=== PATIENT | male | born 2005 | race Caucasian/White ===

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

== ENCOUNTER 2025-06-13 15:17 | Emergency (ER) | payer BC, SELFPAY ==
--- NOTE | ~2025-06-13 | XR_ITS ---
EXAM: XR lumbar spine 2-3V DATE: 06/13/2025 16:00 HISTORY: Intermittent low back pain, NKI . COMPARISON: None available. FINDINGS: 5 nonrib-bearing lumbar-type vertebral bodies. Pedicles intact. Normal vertebral body alig nment. Vertebral body heights preserved. Disc mild disc space narrowing at L2-3, L4-5, and L5-S1. Nor mal facets and posterior elements. No fracture or dislocation. IMPRESSION: No acute fracture or traumatic malalignment detected in the lumbar spine. Mild multilevel degenerative disc disease. Reviewed, dictated and finalized at location K.
--- NOTE | ~2025-06-13 | XR_ITS ---
EXAMINATION: XR chest 1V portable Exam Date/Time: 06/13/2025 15:45 CDT HISTORY: Weakness, intermittent headache Comparison: 04/03/2022. RESULT: Lines, tubes, and devices: None. Lungs and pleura: Clear. Cardiomediastinal silhouette: Stable. Other: No acute osseous or upper abdominal finding. IMPRESSION: No acute cardiopulmonary process. Reviewed, dictated and finalized at location K.
--- NOTE | ~2025-06-13 | CT_ITS ---
EXAMINATION: CT brain wo con DATE: 06/13/2025 15:59 INDICATION: Intermittent posterior headache, NKI . TECHNIQUE: Computed tomography (CT) of the head was performed without intravenous contrast. The mA wa s adjusted according to patient size. Iterative reconstruction technique was employed. The dose-lengt h product was 681.00 mGy-cm. COMPARISON: 04/03/2022. FINDINGS: No acute intracranial hemorrhage or extra-axial fluid collection. No hydrocephalus, mass, or herniation. No acute ischemic infarct. Unremarkable dural venous sinus attenuation. No acute osseous abnormality. The aerated spaces are clear. IMPRESSION: No acute intracranial process. Reviewed, dictated and finalized at location K.
--- OUTSIDE RECORDS SUMMARY | 2025-06-13 15:19 | XMS_ITS | Encounter Summary ---
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 Gender Identity Not on file Sexual Orientation Not on file documented as of this encounter Plan of Treatment Not on file documented as of this encounter Visit Diagnoses Not on filedocumented in this encounter Additional Health Concerns Infection Onset Date Last Indicated Resolved Time COVID-19 Rule Out 09/07/2020 09/07/2020 09/08/2020 9:21 PM CDT COVID-19 Rule Out 12/21/2020 12/21/2020 12/21/2020 4:34 PM 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 COVID-19 Rule Out 12/21/2020 12/21/2020 12/23/2020 9:30 AM 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 COVID-19 Rule Out 01/25/2021 01/25/2021 01/25/2021 6:05 PM 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 COVID-19 Rule Out 01/25/2021 01/25/2021 01/27/2021 7:18 AM 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
--- OUTSIDE RECORDS SUMMARY | 2025-06-13 15:19 | XMS_ITS | Continuity of Care Document ---
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 . [facility], [address] [place] [address], [id number], tel:[phone] Hexaformer Table8 DIANNA No Information Provider Outside. . Family History Family Member Type Diagnosis Age At Onset No Information Immunizations Vaccine Date Status Comments Varicella administered Note: VARICELLA VACCINE, (VARIVAX) SC By JUANITO ; Source: New Immunization Record Hep A administered Note: HEPA VACC INE PED/ADOL-2 DOSE By JUANITO ; Source: New Immunization Record DTaP administered Note: DTAP VACC INE By JUANITO ; Source: New Immunization Record Polio administered Note: POLIOVIRU S # 1 By JUANITO ; Source: New Immunization Record MMR administered Note: MMR VACCI NE, SC By JUANITO ; Source: New Immunization Record Varicella administered Note: VARICELLA VACCINE, (VARIVAX) SC By JUANITO ; Source: New Immunization Record DTaP administered Note: DTAP VACC INE By JUANITO ; Source: New Immunization Record HIB administered Note: HIB VACCI NE By JUANITO ; Source: New Immunization Record Pneumococcal administered Note: PCV7 (PRE VNAR) VACC, PED <5 By JUANITO ; Source: New Immunization Record MMR administered Note: MMR VACCI NE, SC By JUANITO ; Source: New Immunization Record DTaP administered Note: DTAP VACC INE By JUANITO ; Source: New Immunization Record Polio administered Note: POLIOVIRU S # 1 By JUANITO ; Source: New Immunization Record Hep B administered Note: HEPB VACC INE By JUANITO ; Source: New Immunization Record Pneumococcal administered Note: PCV7 (PRE VNAR) VACC, PED <5 By JUANITO ; Source: New Immunization Record DTaP administered Note: DTAP VACC INE By JUANITO ; Source: New Immunization Record Polio administered Note: POLIOVIRU S # 1 By JUANITO ; Source: New Immunization Record HIB administered Note: HIB VACCI NE By JUANITO ; Source: New Immunization Record Pneumococcal administered Note: PCV7 (PRE VNAR) VACC, PED <5 By JUANITO ; Source: New Immunization Record DTaP administered Note: DTAP VACC INE By JUANITO ; Source: New Immunization Record Polio administered Note: POLIOVIRU S # 1 By JUANITO ; Source: New Immunization Record HIB administered Note: HIB VACCI NE By JUANITO ; Source: New Immunization Record Hep B administered Note: HEPB VACC INE By JUANITO ; Source: New Immunization Record Pneumococcal administered Note: PCV7 (PRE VNAR) VACC, PED <5 By JUANITO ; Source: New Immunization Record Hep B administered Note: HEPB VACC INE By JUANITO ; Source: New Immunization Record Payers Payer name Insurance type Covered alliance party ID Leyla luirose(s) No Information Social History Type Description Quantity Date Captured Comments Sex Male Smoking Status No Information Chief Complaint And Reason For Visit No Information Reason For Referral Reason For Referral No Information History Of Present Illness Encounter Date Complaint History Of Prese nt Illness No Information Functional Status Date Functional Assessmen t No Information Instructions Date Instruction Additional Infor mation No Information Assessments Type Assessment Date No Information Patient Care Teams Name Effective Dates (start - stop) Status Members No Information
--- OUTSIDE RECORDS SUMMARY | 2025-06-13 15:19 | XMS_ITS | Clinical Summary ---
Author Organization [facility] Address [address] [place] [address] Care Team Providers Care Coat Joiner Lockstitch Name Role Phone Simón Stubbs MD Primary Care Provider [phone] Source Comments [facility] [email or web address],non-owned Affiliates and Associated Physician Practices is amultiple site organization consisting of ambulatory clinics and hospital sitesin [place], [place], [place] and [place]. This disclosure is being madepursuant to the Care Everywhere program and may not contain all information available regarding this patient. Last updated 18.[facility] [email or web address] Allergies No known active allergies Medications * Be aware that medications may not be up to date on this document. Alwaysverify current medications with the patient. methylphenidate (RITALIN) 10 MG tablet Take 10 mg by mouth 3 times daily. 10 mg in am, 5 mg( 1/2 tab) at 11:00 and 5 mg at 3:30 Active cloNIDine (CATAPRES) 0.1 MG tablet Take 0.1 mg by mouth 2 times daily Active FLUoxetine (PROZAC) 20 MG/5ML oral solution Take 20 mg by mouth once daily Active ondansetron, disintegrating, (ZOFRAN ODT) 4 MG tablet Take 1 Tab by mouth every 8 hours as needed for Nausea/Vomiti ng Allow tablet to dissolve on the tongue 24 Tab 1 03/01/2016 Active esomeprazole (NEXIUM) 20 MG packet Take 1 Packet by mouth once daily 30 Packet 2 04/05/2016 Active Active Problems Problem Noted Date Diagnosed Date Hematuria 03/30/2016 Assessment & Plan (04/04/2016 3:24 PM CDT): Assessment: Continues to have hematuria of unknown reason. Father with hx of kidney stones but Itz denies any flank pain. Plan: - Called nephrology, no need for inpatient consultation. He may have IgA nephropathy but can be worked up as an outpatient. He saw nephrology 1 year ago and was told to follow up in a year if the hematuria was still present. Assessment & Plan (04/03/2016 1:56 AM CDT): Assessment: Continues to have hematuria of unknown reason. Father with hx of kidney stones but Itz denies any flank pain. Plan: Will monitor. Might need further work up in the future on outpatient base, if does not resolve. Assessment & Plan (03/30/2016 2:34 PM CDT): Assessment: Reports of gross hematuria and findings of microscopic hematuria w/o proteinuria. No reported dysuria. No pyuria. No HTN Plan: - Urine calcium/creatinine ratio - Urine culture pending - May need further evaluation as outpatient Assessment & Plan (03/30/2016 12:51 PM CDT): Assessment: Reports of gross hematuria and finding of microscopic hematuria w/o proteinuria. No reported dysuria. No pyuria. No HTN Plan: 1. Obtain Urine calcium/creatinine ratio 2. Rescreen for signs/symptoms of UTI. If so, obtaine urine culture. 3. Physical exam to urtheral meatus 4. May need further evaluation outpatient Behavior disorder 02/29/2016 Assessment & Plan (02/29/2016 5:56 PM CDT): Assessment: 10 yo admitted for abdominal pain and vomiting with history of ADHD and behavioral problems. Outburst upon arrival requiring restraints, safety leader, ativan, and IM zyprexa. Plan: - continue home medications - fluoxetine 20 mg daily - clonidine 0.1 mg bid - ritalin 15 mg qam and 5 mg qpm - ativan 2 mg q4h prn for agitation/behavior disturbance - enclosure bed with mitten restraints when father not present - social work consult Epigastric abdominal pain and vomiting 6 Assessment & Plan (04/04/2016 3:27 PM CDT): Assessment: 1 month hx of nbnb persistent vomiting with sharp shooting mid epigastric region pain which last few seconds. Pt was dx with H-pylori Gastritis and was started on Clarithromycin and amoxicillin. Pt has failed outpatient treatment and continues to have similar symptoms. Pt also hx behavior problems and that might be also a reason for abdominal pain and vomiting. Pt has not received ADHD and gastritis medicines due to constant emesis. WIll admit him for further evaluation & treatment of pain and dehydration. Plan: MIVF--can decrease if taking good PO IV nexium. Tylenol for pain - feel that a large component of these symptoms is anxiety and underlying psychologic issues. Psychology recommended outpatient therapy during the February hospitalization. Psychiatry was curbsided today and recommended outpatient therapy as well. Dad does not seem amenable to this - SW consulted as pt has expressed at times that he does not want to go home with dad (not currently saying that). There have been social concerns during past admissions as well. Assessment & Plan (04/03/2016 1:58 AM CDT): Assessment: 1 month hx of nbnb persistent vomiting with sharp shooting mid epigastric region pain which last few seconds. Pt was dx with H-pylori Gastritis and was started on Clarithromycin and amoxicillin. Pt has failed outpatient treatment and continues to have similar symptoms. Pt also hx behavior problems and that might be also a reason for abdominal pain and vomiting. Pt has not received ADHD and gastritis medicines due to constant emesis. WIll admit him for further evaluation & treatment of pain and dehydration. Plan: Admit to general medicine floor under Dr. Antunez's Care. NPO overnight. MIVF IV nexium. IV Toradol for pain. Avoid NSAIDs. Hold antibiotics for now. Maalox to prevent emesis. Assessment & Plan (03/30/2016 10:55 PM CDT): Assessment: Itz is a 10 yo with H. Pylori and gastritis diagnosed 1 month ago--untreated due to inability to contact family--who presents with abdominal pain and NBNB vomiting. He was dehydrated secondary to multiple episodes of emesis and so was admitted for IV hydration. Plan: - mIVF: D5 1/2 + 20 KCl at 70 ml/h, discontinue once tolerating adequate po fluids - Amoxicillin 250 mg TID - Clarithromycin 250 mg BID - IV Nexium 20 mg QD - Monitor I/O - Vitals Q8 - Regular diet as tolerated - Discharge home once clinically improved Assessment & Plan (03/30/2016 12:45 PM CDT): Known h/o H. Pylori gastritis Recommend tx with triple therapy in light of endoscopic findings of H. Pylori gastritis in setting of symptoms (vomiting) Perhaps unrelated, but would reassess symptoms after therapy Assessment & Plan (03/30/2016 3:49 AM CDT): Assessment: Itz is a 10 yo with H. Pylori and gastritis diagnosed 1 month ago--untreated due to inability to contact family--who presents with abdominal pain and NBNB vomiting. He is dehydrated secondary to multiple episodes large emesis today so will admit for IV rehydration. Was supposed to have follow up appointment with GI today so will discuss plan going forward with GI team on rounds. Plan: - Admit to Gastroenterology; Dr. Vera - Regular Diet - mIVF: D5 1/2 + 20 KCl at 70 ml/h - Amoxicillin 250 mg TID - Clarithromycin 250 mg BID - IV Nexium 10 mg QD - Monitor I/O - Vitals Q8 Assessment & Plan (02/29/2016 5:53 PM CDT): Assessment: Itz is a 10 year old male with history of constipation and behavior problems who presents for epigastric pain, possible weight loss, and vomiting. Admitted for further evaluation of vomiting. Labs reassuring. Etiology likely gastritis given history. EGD done today and still having pain and nausea. Plan: - regular diet - Nexium 20 mg bid - zofran 4 mg q8h prn - Strict I/Os - Vitals q 8 hrs - benadryl 12.5 mg qhs Assessment & Plan (02/28/2016 11:34 PM CDT): Assessment: Plan: Resolved Problems Problem Noted Date Diagnosed Date Resolved Date Dehydration 03/30/2016 03/30/2016 Assessment & Plan (03/30/2016 12:53 PM CDT): Assessment: admitted with po intolerance and electorlyte abnormalities c/w dehydration. Plan: 1. S/p IVF, appears well hydrated. 2. 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 Gender Identity Not on file Sexual Orientation Not on file Last Filed Vital Signs Vital Sign Reading Time Taken Comments Blood Pressure 110/62 04/05/2016 11:25 AM CDT Pulse 80 04/05/2016 11:25 AM CDT Temperature 36 C (96.8 F) 04/05/2016 11:25 AM CDT Respiratory Rate 15 04/05/2016 11:2 5 AM CDT Oxygen Saturation 99% 04/03/2016 6:00 AM CDT Inhaled Oxygen Concentration - - Weight 27.7 kg (61 lb 1.1 oz) 04/03/2016 3:30 PM CDT Height 134 cm (4' 4.76) 04/03/2016 3:30 PM CDT Body Mass Index 15.43 04/03/2016 3:30 PM CDT Body Mass Index Percentile 20.76% 04/03/2016 3:3 0 PM CDT Growth Chart: CDC (Boys, 2-2 0 Years) Plan of Treatment Health Maintenance Due Date Last Done Comments HIV SCREENING 2020 HPV VACCINE (1 - Male 3-dose series) 2020 MENINGOCOCCAL (Group B) VACC INE SHARED DECISION-MAKING (1 of 2 - Standard) 2021 HEPATITIS C SCREENING 10/19/2023 COVID-19 VACCINE (1 - 2023-2 5 season) 2024 DTAP/TDAP/TD VACCINES (1 - Tdap) 2024 HEPATITIS B VACCINE (1 of 3 - 19+ 3-dose series) 2024 DEPRESSION SCREENING 11/25/2024 INFLUENZA VACCINE (#1) 2025 ZOSTER VACCINE (1 of 2) 2055 HIB VACCINE Aged Out No longer eligi ble based on patient's age to complete this topic MENINGOCOCCAL GROUPS A/C/Y/W VACCINE Aged Out No longer eligible b ased on patient's age to complete this topic PNEUMOCOCCAL VACCINE Aged Out No long er eligible based on patient's age to complete this topic Insurance MEDICAID - [place] Advance Directives * Full Code (Latest Code Status on File) Date Activated Date Inactivated Comments 04/03/2016 3:09 AM 04/05/2016 2:02 PM * Full Code Date Activated Date Inactivated Comments 03/30/2016 3:44 AM 03/30/2016 7:14 PM * Full Code Date Activated Date Inactivated Comments 02/28/2016 10:54 PM 03/01/2016 1:59 PM Care Teams Coat Joiner Lockstitch Relationship Specialty Start Date End Date Simón Stubbs MD [address] [place] [phone] PCP - General Family Medicine 03/11/15
--- OUTSIDE RECORDS SUMMARY | 2025-06-13 15:19 | XMS_ITS | Clinical Summary ---
Author Organization [facility] Address [facility] [place] [address] Care Team Providers Care Oracle Adf Consultant Name Role Phone Viraj Hi MD Primary Care Provider Allergies Active Allergy Reactions Criticality Noted Date Comments Poison Chikis Extract Rash Low 04/25/2025 Medications cyclobenzaprine (FLEXERIL) 10 MG tablet Take 1 tablet (10 mg total) by mouth 3 (three) times daily as needed for Muscle Spasms. 12 tablet 04/25/2025 Active Encounters Date Type Department Care Team Description 04/25/2025 2:27 PM CDT - 04/25/2025 3:35 PM CDT Emergency [facility] [address] [facility] [place] [id number] Tony Melvin MD Back Pain Discharge Disposition: Home or Self Care (Routine Discharge) 04/25/2025 Travel from Last 3 Months Family History Medical History Relation Comments No Known Problems Father No Known Problems Mother Relation Status Comments Father Alive Mother Alive Social History Tobacco Use Types Packs/Day Years Used Date Smoking Tobacco: Former Cigarettes Tobacco Cessation:Counseling Given: Not Answered Alcohol Use Standard Drinks/Week Comments Not Currently 0 (1 standard drink = 0.6 oz pur e alcohol) Sex and Gender Information Value Date Recorded Sex Assigned at Male 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 Male 5:59 PM 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 Gender Identity Not on file Sexual Orientation Not on file Last Filed Vital Signs Vital Sign Reading Time Taken Comments Blood Pressure 125/69 04/25/2025 3:35 PM CDT Pulse 61 04/25/2025 3:35 PM CDT Temperature 36.7 C (98 F) 04/25/2025 2:27 PM CDT Respiratory Rate 16 04/25/2025 3:35 PM CDT Oxygen Saturation 100% 04/25/2025 3:35 PM CDT Inhaled Oxygen Concentration - - Weight 78.1 kg (172 lb 2 oz) 04/25/2025 2:27 PM CDT Height 179.1 cm (5' 10.5) 04/25/2025 2:27 PM CD T Body Mass Index 24.35 04/25/2025 2:27 PM CDT Plan of Treatment Health Maintenance Due Date Last Done Comments Annual Physical 2008 HPV Vaccines (2 - Male 2-dos e series) 05/01/2019 10/31/2018 Meningococcal B Vaccine (1 o f 2 - Standard) 2021 Hepatitis C 2023 COVID-19 Vaccine (1 - 2023-2 5 season) 2024 DTaP, Tdap and Td Vaccines ( 4 - Tdap) 2024 11/19/2006, 03/01/2006, 01/04/2006 Hepatitis B Vaccines (1 of 3 - 19+ 3-dose series) 2024 Meningococcal Vaccine Aged Out 10/31/2018 No fredo carmen eligible based on patient's age to complete this topic Pneumococcal Vaccine: Pediatrics (0 to 5 Years) and At-Risk Patients (6 to 49 Years) Aged Out No longer eligible b ased on patient's age to complete this topic RSV Immunizations Under 20 Months Aged Out No longer eligible b ased on patient's age to complete this topic Procedures Procedure Name Priority Date/Time Associated Diagnosis Comments XR LUMB SPINE 3V STAT 04/25/2025 2:58 PM CDT from Last 3 Months Results * XR LUMB SPINE 3V (04/25/2025 2:58 PM CDT) Anatomical Region Laterality Modality Spine Radiographic Lianna ging 04/25/2025 2:59 PM CDT Impressions 04/25/2025 3:02 PM CDT IMPRESSION: No acute radiographic abnormality of the lumbar spine. Ordered By: TONY MELVIN Interpreted By: Levi Dang MD, 04/25/2025 2:59 PM Narrative 04/25/2025 3:02 PM CDT [address] [place] [address] Examination: XR LUMB SPINE 3V, 04/25/2025 2:57 PM. Technique: AP, lateral and L5-S1 radiographs of the lumbar spine. Clinical history: low back pain for 3 days, no trauma Comparison: CT abdomen and pelvis 12/19/2024 Findings: There are 5 nonrib-bearing lumbar-type vertebral bodies. Hypoplastic ribs at the T12 vertebral body. There is 0.4 cm of retrolisthesis of L5 on S1. The vertebral bodies and facets are otherwise well aligned. No acute fracture nor destructive process of the visualized osseous structures. Mild amount stool throughout the colon. Procedure Note Levi Dang MD - 04/25/[address] [place] [address] Examination: XR LUMB SPINE 3V, 04/25/2025 2:57 PM. Technique: AP, lateral and L5-S1 radiographs of the lumbar spine. Clinical history: low back pain for 3 days, no trauma Comparison: CT abdomen and pelvis 12/19/2024 Findings: There are 5 nonrib-bearing lumbar-type vertebral bodies. Hypoplastic ribsat the T12 vertebral body. There is 0.4 cm of retrolisthesis of L5 on S1.The vertebral bodies and facets are otherwise well aligned. No acutefracture nor destructive process of the visualized osseous structures.Mild amount stool throughout the colon. IMPRESSION: No acute radiographic abnormality of the lumbar spine. Ordered By: TONY MELVIN Interpreted By: Levi Dang MD, 04/25/2025 2:59 PM us Tony Melvin MD GENERAL IMAGING Final Resul t from Last 3 Months Insurance [facility] C/O PROVIDER SERVICES ROSAL[employer] COULTER [id number] Care Teams Oracle Adf Consultant Relationship Specialty Start Date End Date Viraj Hi MD [address] [place] [phone] PCP - General FAMILY PRACTICE 12/21/20
[2025-06-13 15:21] VITALS: BP 146/93; PULSE 110; RESP 18; TEMP 37.2; O2SAT 100
--- NOTE | 2025-06-13 15:34 | ED_ITS ---
HPI - General Adult General Chief complaint: Unspecified Stated complaint: bump on head Time Seen by Provider: 06/13/25 15:32 Source: patient and family Mode of arrival: ambulatory History of Present Illness HPI narrative: 19 years old white male came to the ED with his dad by private car complaining of headache, lumps on the scalp, weakness, not feeling good, tailbone pain for the last 2-3 weeks. Patient denies any injury. Patient does not have a job, does not go to school, lives with his father. Patient denies any fever, chills, nausea, vomiting. Patient reports smoking cigarettes, marijuana, drinking alcohol occasionally denies other drug use. Patient concerned about the possibility of bone metastasis. patient does not have any history of cancer Related Data Home Medications ?Medication ?Instructions ?Recorded ?Confirmed ?Last Taken ?Type sertraline 25 mg tablet 25 mg PO DAILY 09/17/22 09/17/22 Unknown History Allergies Allergy/AdvReac Type Severity Reaction Status Date / Time No Known Allergies Allergy Verified 06/13/25 15:20 Review of Systems 2 Review of Systems: All systems reviewed & are unremarkable except as noted in HPI and below PMFSH Past Medical History Medical History Depression Social History Social History Substance use type: marijuana Exam 2 Narrative: General appearance: Well-developed, well-nourished Skin: Normal color Head: Normocephalic, nontraumatic, no bruises, no swelling, no bumps or lumps Eyes: Clear conjunctiva ENT: Oropharynx normal, ears normal, nose normal Neck: Supple, nontender Chest and respiratory: Airway patent, no respiratory distress, no accessory muscle use Heart: Regular rate/rhythm Abdomen: Soft, nontender, no organomegaly, quiet bowel sounds Vascular: Normal peripheral pulses, normal capillary refill. Musculoskeletal: Normal range of motion, nontender back Neurologic: Alert and oriented ?3, BENCH JEWELER is normal as tested, no gross motor deficit Course Vital Signs Vital signs: Vital Signs Temperature 37.2 C 06/13/25 15:21 Pulse Rate 110 H 06/13/25 15:21 Respiratory Rate 18 06/13/25 15:21 Blood Pressure 146/93 H 06/13/25 15:21 Pulse Oximetry 100 06/13/25 15:21 Oxygen Delivery Room Air 06/13/25 15:21 Temperature 37.2 C 06/13/25 15:21 Pulse Rate 110 H 06/13/25 15:21 Respiratory Rate 18 06/13/25 15:21 Blood Pressure 146/93 H 06/13/25 15:21 Pulse Oximetry 100 06/13/25 15:21 Oxygen Delivery Room Air 06/13/25 15:21 Medical Decision Making [facility] Narrative Medical decision making narrative: Patient presents with nonspecific symptoms Vital signs showing a blood pressure 146/93, heart rate 110 otherwise within normal limit Physical examination significant for depressed look patient differential diagnosis anxiety, psychosis, drug abuse Blood workup today includes CBC, CMP showed insignificant abnormalities Urinalysis showedNo acute abnormalities CT head without contrast showed no acute abnormalities X-ray of the chest showed no significant abnormalities X-ray of the lumbar spine no acute abnormalities Differential Diagnosis Differential Diagnosis: as above Vital Signs Vital Signs: Vital Signs Temperature 37.2 C 06/13/25 15:21 Pulse Rate 110 H 06/13/25 15:21 Respiratory Rate 18 06/13/25 15:21 Blood Pressure 146/93 H 06/13/25 15:21 Pulse Oximetry 100 06/13/25 15:21 Oxygen Delivery Room Air 06/13/25 15:21 Temperature 37.2 C 06/13/25 15:21 Pulse Rate 110 H 06/13/25 15:21 Respiratory Rate 18 06/13/25 15:21 Blood Pressure 146/93 H 06/13/25 15:21 Pulse Oximetry 100 06/13/25 15:21 Oxygen Delivery Room Air 06/13/25 15:21 Lab Data 06/13/25 15:56 06/13/25 15:56 Labs: Lab Results 06/13/25 Range/Units 15:56 WBC 8.0 (4.8-10.8) K/mm3 RBC 4.32 L (4.70-6.10) M/mm3 Hgb 12.5 L (14.0-18.0) g/dL Hct 36.9 L (40.0-54.0) % MCV 85.4 (78.0-102.0) fL MCH 28.9 (27.0-31.0) pg MCHC 33.9 (32-36) g/dL RDW 12.8 (11.6-14.4) % Plt Count 245 (150-420) K/mm3 MPV 10.0 (8.7-11.0) fl Immature Gran % (Auto) 0.4 H (0.0-0.0) % Neut % (Auto) 53.9 (50.0-70.0) % Lymph % (Auto) 33.1 (18.0-42.0) % [place] % (Auto) 11.4 H (2.0-11.0) % Eos % (Auto) 0.6 L (1.0-6.0) % Baso % (Auto) 0.6 (0.0-1.0) % Lymph # (Auto) 2.65 (1.10-4.50) K/mm3 [place] # (Auto) 0.91 H (0.10-0.90) K/mm3 Eos # (Auto) 0.05 (0.02-0.50) K/mm3 Baso # (Auto) 0.05 (0.00-0.10) K/mm3 Abs Immat Gran (auto) 0.03 H (0.00-0.00) K/mm3 Absolute Neuts (auto) 4.32 (1.70-7.20) K/mm3 Absolute Nucleated RBC 0.00 (0.00-0.00) K/mm3 Nucleated RBC % 0.0 (0-0.0) % Sodium 140 (134-143) mmol/L Potassium 3.8 (3.4-5.0) mmol/L Chloride 103 (98-107) mmol/L Carbon Dioxide 30 (22-30) mmol/L Anion Gap 7 (4-12) mmol/L BUN 15 (8-21) mg/dL Creatinine 0.83 (0.7-1.3) mg/dL Estim Creat Clear Calc 129 ml/min Estimated GFR > 60 (59 - ) Glucose 90 (65-110) mg/dL Calculated Osmolality 290 (285-295) mOsm/kg Calcium 8.8 L (8.9-10.7) mg/dL Total Bilirubin 0.9 (0.2-1.3) mg/dL AST 23 (17-59) U/L ALT 15 (6-50) U/L Alkaline Phosphatase 57 L (58-237) U/L Total Protein 6.8 (6.3-8.6) g/dL Albumin 4.3 (3.7-5.6) g/dL Ethyl Alcohol < 10 (<10) mg/dL Imaging Data Radiologist's impression: Impressions Chest X-Ray 06/13/25 16:01 IMPRESSION: No acute cardiopulmonary process. Lumbar Spine X-Ray 06/13/25 16:02 IMPRESSION: No acute fracture or traumatic malalignment detected in the lumbar spine. Mild multilevel degenerative disc disease. Head CT 06/13/25 16:04 IMPRESSION: No acute intracranial process. Critical Care Time Critical Care Time Critical Care Time: No Discharge Plan Discharge Clinical Impression: Headache, Back pain Patient Disposition: Home Condition: Stable Instructions: Acute Headache (DC), Acute Low Back Pain (ED), Lower Back Exercises (ED) Additional Instructions: Return if symptoms are worsening , call your family physician for appointment, take Tylenol, ibuprofen 600 every 6 hour as as needed for aches and pain, continue home medications. Patient Language: Thai Prescriptions: No Action sertraline 25 mg tablet 25 mg PO DAILY Follow-up/Referrals: Jermaine,ZHEN Dillard [Primary Care Provider] -
[2025-06-13 16:03] LABS: Hematocrit 36.9 % (40.0-54.0); Hemoglobin 12.5 g/dL (14.0-18.0); Immature Granulocyte Percent A 0.4 % (0.0-0.0); Lymphocytes Absolute Auto 2.65 K/mm3 (1.10-4.50); Mean Corpuscular HGB Conc 33.9 g/dL (32-36); Mean Corpuscular Hemoglobin 28.9 pg (27.0-31.0); Mean Corpuscular Volume 85.4 fL (78.0-102.0); Nucleated Red Blood Cells Absolute Auto 0.00 K/mm3 (0.00-0.00); Nucleated Red Blood Cells Perc 0.0 % (0-0.0); Platelet Count Result 245 K/mm3 (150-420); Red Blood Count 4.32 M/mm3 (4.70-6.10); White Blood Count 8.0 K/mm3 (4.8-10.8)
--- OUTSIDE RECORDS SUMMARY | 2025-06-13 16:03 | XMS_ITS | Continuity of Care Document ---
Author Organization [facility] Address [address] [place] [phone] Phone Care Team Providers Care Ehr Trainer Name Role Phone Parcel Carrier, Nurse Unavailable Unavailable Advance Directives Directive Yes / No Effective Date File Name No Information Encounters Encounter Description Practice Location Reason(s) For Visit Diagnoses Date Provider Providers Copied on Encounter [facility], [address] [place] [address], [id number], [place] tel:[phone] [employer] [facility] No Information Parcel Carrier Nurse. . [facility], [address] [place] [address], [id number], tel:[phone] [employer] [facility] No Information Provider Outside. . Family [...] Record Payers Payer name Insurance type Covered constitution party ID Leyla luirose(s) No Information Social [...]
--- OUTSIDE RECORDS SUMMARY | 2025-06-13 16:03 | XMS_ITS | Encounter Summary ---
Author Organization [facility] Address [facility] [place] [address] Care Team Providers Care Nursery School Attendant Name Role Phone Simón Stubbs MD Primary Care Provider [phone] Viraj Hi MD Primary Care Provider [phone] Encounter Details Date Type Department Care Team (Late st Contact Info) Description 05/02/2019 Abstract [facility] CONVERSION [address] [place] [address] , Generic Conversion, Social History Tobacco Use Types Packs/Day Years Used Date Smoking Tobacco: Never Assessed Sex and Gender Information Value Date Recorded Sex Assigned at Male 12/19/2024 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 Legal Sex Male 5:59 PM STAGE SET DESIGNER Gender Identity Not on file Sexual Orientation Not on file documented as of this encounter Plan of Treatment Not on file documented as of this encounter Visit Diagnoses Not on filedocumented in this encounter Additional Health Concerns Infection Onset Date Last Indicated Resolved Time COVID-19 Rule Out 09/07/2020 09/07/2020 09/08/2020 9:21 PM CDT COVID-19 Rule Out 12/21/2020 12/21/2020 12/21/2020 4:34 PM STAGE SET DESIGNER COVID-19 Rule Out 12/21/2020 12/21/2020 12/23/2020 9:30 AM STAGE SET DESIGNER COVID-19 Rule Out 01/25/2021 01/25/2021 01/25/2021 6:05 PM STAGE SET DESIGNER COVID-19 Rule Out 01/25/2021 01/25/2021 01/27/2021 7:18 AM STAGE SET DESIGNER COVID-19 Rule Out 08/22/2021 08/22/2021 08/22/2021 11:38 AM CDT COVID-19 Rule Out 08/29/2021 08/29/2021 08/29/2021 11:19 AM CDT COVID-19 Rule Out 08/29/2021 08/29/2021 08/29/2021 8:08 PM CDT documented as of this encounter Care Teams Nursery School Attendant Relationship Specialty Start Date End Date Simón Stubbs MD [address] [place] [phone] PCP - General FAMILY PRACTICE 10/27/19 12/20/20 Viraj Hi MD [address] [place] [phone] PCP - General FAMILY PRACTICE 12/21/20 documented as of this encounter
--- OUTSIDE RECORDS SUMMARY | 2025-06-13 16:03 | XMS_ITS | Clinical Summary ---
Author Organization [facility] Address [address] [place] [address] Care Team Providers Care Steam Conditioning Operator Name Role Phone Simón Stubbs MD Primary Care Provider [phone] Source Comments [facility],non-owned Affiliates and Associated Physician Practices is amultiple site organization consisting of ambulatory clinics and hospital sitesin [place], [place], [place] and [place]. This disclosure is being madepursuant to the Care Everywhere program and may not contain all information available regarding this patient. Last updated 18.[facility] Allergies No known active allergies Medications * [...] problems. Outburst upon arrival requiring restraints, safety admin assistant, ativan, and IM zyprexa. 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
--- OUTSIDE RECORDS SUMMARY | 2025-06-13 16:04 | XMS_ITS | Clinical Summary ---
Author Organization [facility] Address [facility] [place] [address] Care Team Providers Care Satellite Tv Technician Installer Name Role Phone Viraj Hi MD Primary [...] CDT - 04/25/2025 3:35 PM CDT Emergency [facility] [address] [facility] [place] [id number] Tony Melvin MD Back Pain Discharge Disposition: [...] Sex Assigned at Male 12/19/2024 8:08 PM CRITICAL CARE UNIT MANAGER Legal Sex Male 5:59 PM CRITICAL CARE UNIT MANAGER Gender Identity Not on file Sexual Orientation [...] 2:59 PM Narrative 04/25/2025 3:02 PM CDT [address] [place] [address] Examination: XR LUMB SPINE 3V, 04/25/2025 2:57 [...] Procedure Note Levi Dang MD - 04/25/[address] [place] [address] Examination: XR LUMB SPINE 3V, 04/25/2025 2:57 [...] Resul t from Last 3 Months Insurance [facility] C/O PROVIDER SERVICES [place] COULTER [id number] Care Teams Satellite Tv Technician Installer Relationship Specialty Start Date End Date Viraj Hi MD [address] [place] [phone] PCP - General FAMILY PRACTICE 12/21/20
[2025-06-13 16:33] LABS: Anion Gap 7 mmol/L (4-12); Carbon Dioxide 30 mmol/L (22-30); Chloride 103 mmol/L (98-107); Potassium 3.8 mmol/L (3.4-5.0); Sodium 140 mmol/L (134-143)
[2025-06-13 16:34] LABS: Alanine Aminotransferase 15 U/L (6-50); Albumin Level 4.3 g/dL (3.7-5.6); Alkaline Phosphatase 57 U/L (58-237); Aspartate Amino Transferase 23 U/L (17-59); Bilirubin,Total 0.9 mg/dL (0.2-1.3); Blood Urea Nitrogen 15 mg/dL (8-21); Calcium 8.8 mg/dL (8.9-10.7); Estimated CRCL calculation 129 ml/min; Estimated Glomerular Filt Rate > 60; Glucose 90 mg/dL (65-110); Osmolality Calculated 290 mOsm/kg (285-295); Total Protein 6.8 g/dL (6.3-8.6)
[2025-06-13 16:51] VITALS: BP 122/75; PULSE 85; RESP 16; TEMP 36.9; O2SAT 99
== END 2025-06-13 16:51 | disposition home or self-care (01) ==
PROVIDERS: Emergency Provider Emergency Medicine; PCP Physician Assistant
DX: R51.9 Headache, unspecified (principal); M54.50 Low back pain, unspecified
CPT/HCPCS: 36415; 70450; 71045; 72100; 80053; 82077; 85025; 99284